=== PATIENT | male | born 1980 | race Caucasian/White ===

== ENCOUNTER 2016-12-24 20:01 | Emergency (ER) | payer OTHER ==
[~2016-12-24] VITALS: Ht 185.4 cm; Wt 92.6 kg
[~2016-12-24 20:01] MED LIST: ATV/1 PO; PRLSR20 PO; VENL37.593 PO; ZOLP5TAB PO
[2016-12-24 20:11] VITALS: TEMP 36.6; Ht 185.4 cm; Wt 92.6 kg
--- NOTE | 2016-12-24 20:52 | EMERGENCY ROOM VISIT NOTE ---
History Report prepared by Beck: Itzel Polanco Under the Supervision of: Dr. Caleb Marte M.D. First contact with patient: 20:22 Chief Complaint: OTHER COMPLAINT Stated Complaint: POST EXPOSURE TO BLOOD History of Present Illness The patient is a 36 year old white male with a past medical history of GERD who presents to the ED with a cc of an episode of blood exposure which occurred earlier today. Positive exposure to arms, possibly nose. Negative needle stick. Source of History: patient Onset: earlier today Position: other (global) Quality: other (blood exposure) Timing: other (episodic) Note: Pt reports exposure to arms, nose. Pt denies needle stick exposure. Review of Systems See HPI for pertinent positives and negatives. A total of ten systems were reviewed and were otherwise negative. Past Medical & Surgical Medical Problems: (1) Dehydration (2) GERD (gastroesophageal reflux disease) (3) Hypoxia (4) Influenza A with pneumonia (5) Orthostasis (6) Suboccipital Craniotomy Family History FHx: cancer FHx: myocardial infarction Social History Smoking Status: Current Every Day Smoker Alcohol Use: occasionally Drug Use: none Marital Status: Housing Status: lives with family Occupation Status: employed Current/Historical Medications Scheduled PRN Lorazepam (Lorazepam), 1 MG PO HS PRN for Sleep Omeprazole (Prilosec), 20 MG PO BID PRN for Acid Reflux Zolpidem Tartrate (Zolpidem Tartrate), 10 MG PO HS PRN for Sleep Allergies Coded Allergies: Levofloxacin (Verified Allergy, Unknown, ITCHY AT IV SITE, 03/29/16) Physical Exam Vital Signs Date Time Temp Pulse Resp B/P (MAP) Pulse Ox O2 Delivery O2 Flow Rate FiO2 12/24/16 21:28 90 18 124/88 96 Room Air 12/24/16 20:11 36.6 117 18 111/73 94 Room Air Physical Exam GENERAL: Awake, alert, well-appearing, NAD HENT: Normocephalic, atraumatic. EYES: Normal conjunctiva. Sclera non-icteric. NECK: Supple. No nuchal rigidity. FROM. RESPIRATORY: CTAB, no rhonchi, wheezing, crackles CARDIAC: RRR, no MRG ABDOMEN: Soft, NTND, BS+ MSK: No chest wall TTP, no LE edema NEURO: GCS 15, CN 2-12 intact, moves all 4s on command SKIN: No rash or jaundice noted. Medical Decision & Procedures ED Course 2039: The patient was evaluated in room A12B. A complete history and physical exam was performed. 2044: I discussed the risks of exposure and prophylaxis. I instructed the patient to go to the eye wash station. 2124: I reevaluated the patient. I discussed results and discharge instructions : he verbalized understanding and agreement. The patient is ready for discharge. Medical Decision The patient is a 36 year old white male with a past medical history of GERD who presents to the ED with a cc of an episode of blood exposure which occurred earlier today. Triage Nursing notes reviewed. The patient's presentation and history were concerning for exposure, infectious disease. I discussed the risks of transmission of HIV secondary to blood borne exposures. Patient states he had it over his hands as well as what he thought was his nose. Patient states that he washed his arms as well as his face. I instructed the patient to please wash his eyes out for several minutes. Discussed that measured V more moist mucous membranes unlikely even if the patient is infected with HIV. Patient was instructed of the risks and benefits of postexposure prophylaxis. Patient states that the patient upstairs is unknown whether or not they have any infectious disease. Patient was to be informed of the test results if they are positive. Patient declined any postexposure prophylaxis at this time. Patient was given strict follow-up, discharge, return precautions. Patient agreed with the plan of care and he was discharged back to work without restriction. Medication Reconcilliation Current Medication List: was personally reviewed by me Blood Pressure Screening Patient's blood pressure: Normal blood pressure Blood pressure disposition: Did not require urgent referral Impression Primary Impression: Exposure to blood Additional Impression: Encounter for HIV (human immunodeficiency virus) test Scribe Attestation The scribe's documentation has been prepared under my direction and personally reviewed by me in its entirety. I confirm that the note above accurately reflects all work, treatment, procedures, and medical decision making performed by me. Departure Information Dispostion Home / Self-Care Referrals No Doctor, Assigned (PCP) Patient Instructions HIV Prevent HC Workers, [facility] Additional Instructions Please return to the emergency department if you have worsening or recurrent symptoms not amenable to at-home treatment. Please call for a follow-up appointment with her primary care physician. Please take your medications as prescribed. If you have other concerns and/or complaints please feel free to also call your primary care physician's office or return the ED for further evaluation, management, and treatment. Problem Qualifiers
[2016-12-24] MEDS ORDERED: ATV1 PO (21:00)
[2016-12-24] MEDS ORDERED: OMEP20CA9 PO (21:00)
[2016-12-24] MEDS ORDERED: ZOLP10TA6 PO (21:00)
[2016-12-24 21:28] VITALS: BP 124/88; PULSE 90; O2SAT 96
== END 2016-12-24 21:30 | disposition home or self-care (01) ==
LOC: C.EDB 20:04 → C.EDA 21:30
DX: Z77.21 Contact with and (suspected) exposure to potentially hazardous body fluids (principal); Z11.4 Encounter for screening for human immunodeficiency virus [HIV]; F17.200 Nicotine dependence, unspecified, uncomplicated; Z87.01 Personal history of pneumonia (recurrent); Z98.890 Other specified postprocedural states; Z82.49 Family history of ischemic heart disease and other diseases of the circulatory system

== ENCOUNTER → 2017-08-18 | Outpatient (CLI) | payer OTHER ==
[~2017-08-18] MED LIST changes: -ATV/1 PO; +ATV1 PO; +OMEP20CA9 PO; -PRLSR20 PO; -VENL37.593 PO; +ZOLP10TA6 PO; -ZOLP5TAB PO
[2017-08-18 19:14] LABS: HEMATOCRIT 45.4 % (42-52); HEMOGLOBIN 16.3 g/dL (14.0-18.0); MEAN CORPUSCULAR HEMOGLOBIN 30.9 pg (25-34); MEAN CORPUSCULAR HGB CONC 35.9 g/dl (32-36); MEAN PLATELET VOLUME 10.9 fL (7.4-10.4); PLATELET COUNT 264 K/uL (130-400); RED CELL DISTRIBUTION WIDTH CV 13.4 % (11.5-14.5); RED CELL DISTRIBUTION WIDTH SD 41.9 fL (36.4-46.3); WHITE BLOOD COUNT 7.23 K/uL (4.8-10.8)
[2017-08-18 19:36] LABS: BLOOD UREA NITROGEN 17 mg/dl (7-18); CALCIUM 9.1 mg/dl (8.5-10.1); CARBON DIOXIDE 26 mmol/L (21-32); CHOLESTEROL 225 mg/dl (0-200); CREATININE 1.12 mg/dl (0.60-1.40); GLUCOSE 104 mg/dl (70-99); POTASSIUM 3.4 mmol/L (3.5-5.1); SODIUM 137 mmol/L (136-145)
[2017-08-18 19:47] LABS: LDL CHOLESTEROL CALCULATED 130 mg/dl
[2017-08-22 13:10] LABS: METHYLMALONIC ACID 237 NMOL/L (87-318)
== END | disposition home or self-care (01) ==
LOC: C.LAB 18:11
PROVIDERS: ATTEND Family Medicine
DX: F32.9 Major depressive disorder, single episode, unspecified (principal); F90.0 Attention-deficit hyperactivity disorder, predominantly inattentive type; K21.9 Gastro-esophageal reflux disease without esophagitis; R78.5 Finding of other psychotropic drug in blood; H47.9 Unspecified disorder of visual pathways

== ENCOUNTER 2017-10-07 13:30 | Emergency (ER) | payer OTHER ==
[~2017-10-07] VITALS: Ht 185.4 cm; Wt 95.9 kg
[2017-10-07 13:45] VITALS: TEMP 36.8; Ht 185.4 cm; Wt 95.9 kg
[2017-10-07] MEDS ORDERED: ONDANSETRON INJ 2 MG/ML 2 ML VIAL IV STA (13:45)
[2017-10-07] MEDS ORDERED: MoRPHine SULFATE 10 MG/ML CARP/VIAL IV STA (13:45)
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
[2017-10-07] MEDS ORDERED: MODA1TAB5 PO (14:56)
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
[2017-10-07] MEDS ORDERED: KETOROLAC TROMETHAMINE 30 MG/ML VIAL IV STA (15:14)
[2017-10-07 15:21] VITALS: BP 127/75; PULSE 78; O2SAT 95
[2017-10-07] MEDS ORDERED: CYCL10TA6 PO (15:28)
[2017-10-07] MEDS ORDERED: OXYC-57 PO (15:28)
== END 2017-10-07 15:40 | disposition home or self-care (01) ==
LOC: EDBD 13:30 → C.EDC 13:31
DX: M25.531 Pain in right wrist (principal); V47.5XXA Car driver injured in collision with fixed or stationary object in traffic accident, initial encounter; Y92.410 Unspecified street and highway as the place of occurrence of the external cause; K21.9 Gastro-esophageal reflux disease without esophagitis; F17.210 Nicotine dependence, cigarettes, uncomplicated; Z79.899 Other long term (current) drug therapy